=== PATIENT | female | born 1985 ===

== ENCOUNTER 2020-03-05 18:45 | Emergency (ER) | payer OTHER, SELFPAY ==
--- NOTE | 2020-03-05 19:00 | ED.GENADUL_ITS ---
Discharge Plan Disposition Patient Disposition: HOME Condition: Good Discharge Details Clinical Impression: Abdominal pain Primary Care Provider: Unknown,Unknown ED Provider: Abril Robin Home Meds and New Rx's Prescriptions: Continued multivitamin Tablet 1 tab PO DAILY RF: 0 Harvey 60 mg Capsule 60 mg PO TID RF: 0 Discharge Instructions Instructions: Abdominal Pain (ED) Additional Instructions: Your labs are reassuring today. Your imaging shows that you have had your oophorectomy on the right side. You have an enlarged appendix but this does not appear consistent with acute appendicitis. The surgeon would like to reevaluate you tomorrow and likely repeat blood work. Please call the office tomorrow to schedule appointment. Number listed below. If you develop fever/chills, increased pain, inability to hydrate, vomiting or other new/worsening symptoms care urgently once again. Please follow-up with primary care within the next 2 weeks. You were noted to have an ovarian cyst on the left side. Referral to women's wellness has been made. You may call tomorrow to schedule follow-up appointment, number listed below. Referrals: Maria Esther Muhammad MD [ [facility] STAFF PHYSICIAN] - Amaris Dozier DO [OSTEOPATHIC DOCTOR] - Medical Decision Making Patient is a pleasant 35-year-old female referred here from urgent care. Patient had a little right lower quadrant pain x 1 month that has progressively been increasing.. At the urgent care, she had a negative test, negative urinalysis. Sort Operations Supervisor was concerned the patient had guarding on the right lower quadrant. He reports she status post oophorectomy but unclear which side. Has not had any other abdominal surgeries. Patient reported to sound that felt like her ovarian cyst have historically. She tates that nothing worsens or improves her pain but that it is constant. Denies change in urinary habits, BM. Denies vaginal discharge, no new sexual partners. LMP 2 weeks ago. States that she had twins 10 months ago via . Lawrence moved here from [place] recently, has established with [facility] but does not have her preliminary appointment until the . She denies fevers/chills. No change in appetite. Began Harvey 2 days ago but no change in her pain since starting this. No trauma. On exam, she appears comfortable. She has RLQ pain with palpation but no peritoneal findings. She has is tender (point as well as just below this. Considered appendicitis although the length of her symptoms would make this fairly unusual. She does not appear acutely ill or toxic. Up to consider potential ovarian patient reports she has had these historically. This does not sound to be cyclical in nature associated with her menstrual cycle. Patient is status post oophorectomy but unclear which side. Plan for CT as well as baseline labs. Discussed plan with patient she declines any analgesia this time. FINDINGS: Liver: Unremarkable. Gallbladder and bile ducts: Unremarkable. Pancreas: Unremarkable. Spleen: Unremarkable. Adrenal glands: Unremarkable. Kidneys and ureters: Unremarkable. No hydronephrosis. Stomach and bowel: No bowel obstruction. Appendix: Appendix is mildly prominent measuring 7 mm with no adjacent fat stranding. Intraperitoneal space: Minimal free fluid. No free air. Vasculature: No aortic aneurysm. No aortic dissection. Lymph nodes: No pathologically enlarged lymph nodes. Urinary bladder: Unremarkable as visualized. Reproductive: There is a possible 5.4 cm cyst with septations in the left ovary. The right ovary is not seen. Bones/joints: No acute fracture. No destructive bone lesion. Soft tissues: Unremarkable. IMPRESSION: 1. Borderline abnormal appendix without significant inflammatory changes. This may be within normal limits, but close clinical follow-up is recommended. 2. Possible mildly complex left ovarian cyst. The right ovary is not seen. Recommend ultrasound for further evaluation. Labs reviewed. No leukocytosis. Hemoglobin slightly low at 10.9. No significant electrolyte abnormalities. I discussed these findings with chitra bateman. Also comfortable with Dr. Hrerera. At this point, the patient is tolerating p.o. well. Afebrile. No leukocytosis. Her exam does indicate discomfort over McBurney's point however, her labs, history and imaging are not consistent with acute appendicitis despite her enlarged appendix. Dr. Herrera will see her in the office tomorrow. Advised that she will repeat labs and reevaluate. Patient did report that she was status post oophorectomy but was not clear which side this was on. Based on imaging, the right ovary that has been removed. She does have the complex left ovarian cyst, plan to refer to women's wellness. Patient is new to the area but has established with primary care. Patient will contact primary care tomorrow to schedule follow-up in the next 2 weeks. She will follow-up with general surgery tomorrow. Also advised that she contact women's wellness. They had advised the patient had an ultrasound for further evaluation of the right ovary but again, patient is status post nephrectomy did not that this needs to be done in an urgent manner. Other questions and concerns were addressed in agreement with this plan HPI General Mode of arrival: ambulatory . Date/Time Provider Initiated Documentation: 03/05/20 19:00 . Limitations to Documentation: no limitations . Information obtained by: patient, RN/MD and RN notes reviewed . History of Present Illness 35 year old F presents to the emergency department with the chief complaint of RLQ pain, described as moderate, with intensity rated at 6. Quality is described as aching, and is localized to the abdomen. Patient reports no radiation. Patient started experiencing this month(s) (1) and it has been constant. No relieving factors improve symptom(s), No exacerbating factors reported . Patient notes no other symptoms.. Patient did receive the following treatments prior to arrival, none Related Data Home Medications Medication Instructions Recorded Confirmed Harvey 60 mg PO TID 03/05/20 03/05/20 multivitamin 1 tab PO DAILY 03/05/20 03/05/20 Allergies Allergy/AdvReac Type Severity Reaction Status Date / Time No Known Allergies Allergy Unverified 03/05/20 19:20 Review of Systems Constitutional Constitutional: Reports as per HPI, Denies chills, Denies fatigue, Denies fever(s) and Denies headache(s) ENT Ears, Nose, Mouth, and Throat: Denies headache(s) Cardiovascular Cardiovascular: Reports as per HPI, Denies chest pain and Denies dyspnea Respiratory Respiratory: Reports as per HPI, Denies cough and Denies dyspnea Gastrointestinal Gastrointestinal: Reports as per HPI Musculoskeletal Musculoskeletal: Reports as per HPI and Denies back pain Integumentary/Breasts Skin/Breast: Reports as per HPI and Denies rash Neurologic Neurologic: Reports as per HPI and Denies headache(s) Endocrine Endocrine: Denies fatigue [facility] Social History Smoking risk assessment performed?: No Current gender identity: female Exam Const General: cooperative, healthy appearing, comfortable, no acute distress and well developed Nutritional Appearance: well nourished and obese Orientation: alert and awake HENMT Head: normal to inspection Mouth: moist mucous membranes Resp Effort & Inspection: normal respiratory effort, able to speak in complete sentences and no respiratory distress Auscultation: clear to auscultation bilaterally, no rales, no rhonchi and no wheezes Cardio Rate: regular rate Rhythm: regular rhythm Heart Sounds: S1 normal and S2 normal GI Inspection: normal to inspection, no edema, non-distended, no visible herniation, no visible pulsation and No visible peristalsis Palpation: soft, no hepatosplenomegaly, no guarding, no hernias, no masses, no pulsatile masses, tender in the RLQ and at McBurney's point; Birch's sign negative, obturator sign negative, psoas sign negative and with no rebound tenderness and No ascites Percussion: normal to percussion Auscultation: normal bowel sounds Back/Spine/Pelvis Back: no CVA tenderness Skin General skin exam: no rashes or lesions noted Trauma: no lacerations or abrasions Neuro General: patient alert and patient awake Cognition: normal cognition Speech: speech normal Gait: normal gait Psych Appearance: grossly normal and well kempt Mental Status: mental status grossly normal Speech and Movement: speech and movement normal
--- NOTE | 2020-03-05 19:00 | DI.CT_ITS ---
EXAM: CT ABDOMEN PELVIS W CLINICAL HISTORY: RLQ pain. TECHNIQUE: Imaging Protocol: Axial computed tomography images with coronal and sagittal reformatted images were created and reviewed CONTRAST MATERIAL: Intravenous: Omnipaque 100cc Oral: None COMPARISON: No exams were available for comparison FINDINGS: VISUALIZED LUNG BASES: No nodules nor pleural effusions evident. ABDOMEN: There is no ascites. LIVER: There are no obvious focal hepatic lesions evident . GALLBLADDER/BILIARY: No obvious gallbladder pathology. CBD is not dilated. PANCREAS: No evidence of pancreatic mass nor dilatation of the pancreatic duct. SPLEEN: Spleen is not enlarged. No obvious intrasplenic lesions. Splenic and portal veins are paten t. ADRENALS: There are no significant adrenal masses. KIDNEYS:No cysts evident. No solid renal masses. No calculi nor hydronephrosis.. ABDOMINAL AORTA: Abdominal aorta is not enlarged and there is no aehykrxkmttjalu-hjvr-idhagi adenopat hy. ABDOMINAL WALL/GI: Diastasis of the rectus abdominus no to anterior abdominal wall hernia sac. No ramses wel obstruction. PELVIS: GI: The diameter of the appendix is slightly increased (8 millimeters). There is no obvious periappe ndiceal streaking. There is no calcified structure within the appendix lumen. No evidence of sigmoi d diverticulitis. LYMPH NODES: There is no intrapelvic nor inguinal adenopathy. REPRODUCTIVE: Uterus unremarkable. There is a complex septated cyst in the left ovary which measures approximately 5 x 3 centimetres. The opposite-right ovary is difficult to identify. No obvious marie e fluid. URINARY BLADDER: No calculi nor obvious masses evident OSSEOUS: No significant osseous lesions. IMPRESSION: 1. Appendix diameter is slightly increased but there is no periappendiceal streaking to suggest obvio us acute appendicitis. Nevertheless, recommend close follow-up. 2. Complex ovarian cyst measuring approximately 5 x 3 centimetres. Recommend further characterizatio n with ultrasound. The opposite-right ovary is difficult to visualize on this study. There is no fr ee fluid in the pelvis. 3. Diastasis of the anterior abdominal wall rectus muscle but no true anterior abdominal wall hernia. RADIATION DOSE DELIVERED: 1,379.79mGy.cm Total DLP DATA REPOSITORY: All CT scans at this facility are submitted to the National Radiology Data Registry (NRDR) Dose Index Registry (DIR) with the [employer] (A[employer]). RADIATION OPTIMIZATION: All CT scans at this facility use at least one of these dose optimization te chniques: automated exposure control; mA and/or kV adjustment per patient size (includes targeted exa ms where dose is matched to clinical indication); or iterative reconstruction.
[2020-03-05 19:16] VITALS: BP 141/60; PULSE 76; RESP 20; TEMP 36.9; O2SAT 100
[2020-03-05 20:04] LABS: Abs Immature Grans 0.02 10^3/uL (0.0-0.06); Absolute Basophil Count 0.02 10^3/uL (0.0-0.2); Absolute Eosinophil Count 0.22 10^3/uL (0.0-0.7); Absolute Lymphocyte Count 2.21 10^3/uL (1.2-3.4); Absolute Monocyte Count 0.37 10^3/uL (0.1-0.8); Absolute Neutrophil Count 3.95 10^3/uL (1.2-6.7); Basophils % 0.3; Eosinophils % 3.2; HCT 34.7 % (36.0-46.0); HGB 10.9 g/dL (11.2-15.7); Immature Grans % 0.3; Lymphocytes % 32.5; MCH 27.4 pg (27.0-33.0); MCHC 31.4 % (32.0-36.0); MCV 87.2 fL (80-95); MPV 9.4 fL (8.0-11.0); Monocytes % 5.4; Neutrophils % 58.3; Nucleated RBC 0 %; Platelet Count 379 10^3/uL (130-400); RBC 3.98 10^6/uL (3.93-5.22); RDW 13.5 % (11.7-14.6); RDW-SD 42.8 fL; WBC 6.79 10^3/uL (4.4-10.8)
[2020-03-05] MEDS: Omnipaque 350 MG/ML 100 ML BTL IJ (20:07)
[2020-03-05] MEDS: Normal Saline Flush 10 ML SYR IVP (20:08)
[2020-03-05 20:09] LABS: Bilirubin Negative (Negative); Blood Negative (Negative); Clarity Clear (Clear); Glucose Negative (Negative); Ketones Negative (Negative); Leukocyte Esterase Negative (Negative); Nitrite Negative (Negative); Specific Gravity 1.025 (1.005-1.025); Urobilinogen 0.2 EU/dL (Up TO 0.2)
[2020-03-05 20:25] LABS: ALT 17 U/L (14-59); AST 13 U/L (15-37); Alkaline Phosphatase 100 U/L (46-116); Anion Gap 7.5 mmol/L (3-11); BUN 12 mg/dL (7-18); Bilirubin, Total 0.2 mg/dL (0.2-1.0); CO2 27.5 mmol/L (21.0-32.0); CREATININE 0.82 mg/dL (0.55-1.02); Calcium 9.1 mg/dL (8.5-10.1); Chloride 103 mmol/L (98-107); Glucose 108 mg/dL (74-106); Magnesium 2.1 mg/dL (1.8-2.4); Potassium 3.7 mmol/L (3.5-5.1); Sodium 138 mmol/L (136-145); Total Protein 8.1 g/dL (6.4-8.2)
[2020-03-05] MEDS: Lactated Ringers 1,000 ML 1000 ML IV (20:29)
--- NOTE | 2020-03-05 20:49 | DI.VRAD_ITS ---
PROCEDURE INFORMATION: Exam: CT Abdomen And Pelvis With Contrast Exam date and time: 03/05/2020 8:00 PM Age: 35 years old Clinical indication: Abdominal pain; Localized; Right lower quadrant (rlq); Prior surgery; Surgery date: 6+ months; Surgery type: ; Patient HX: Rlq pain and back pain worsening TECHNIQUE: Imaging protocol: Computed tomography of the abdomen and pelvis with intravenous contrast. Radiation optimization: All CT scans at this facility use at least one of these dose optimization techniques: automated exposure control; mA and/or kV adjustment per patient size (includes targeted exams where dose is matched to clinical indication); or iterative reconstruction. Contrast material: OMNIPAQUE 350; Contrast volume: 100 ml; Contrast route: INTRAVENOUS (IV); COMPARISON: No relevant prior studies available. FINDINGS: Liver: Unremarkable. Gallbladder and bile ducts: Unremarkable. Pancreas: Unremarkable. Spleen: Unremarkable. Adrenal glands: Unremarkable. Kidneys and ureters: Unremarkable. No hydronephrosis. Stomach and bowel: No bowel obstruction. Appendix: Appendix is mildly prominent measuring 7 mm with no adjacent fat stranding. Intraperitoneal space: Minimal free fluid. No free air. Vasculature: No aortic aneurysm. No aortic dissection. Lymph nodes: No pathologically enlarged lymph nodes. Urinary bladder: Unremarkable as visualized. Reproductive: There is a possible 5.4 cm cyst with septations in the left ovary. The right ovary is not seen. Bones/joints: No acute fracture. No destructive bone lesion. Soft tissues: Unremarkable. IMPRESSION: 1. Borderline abnormal appendix without significant inflammatory changes. This may be within normal limits, but close clinical follow-up is recommended. 2. Possible mildly complex left ovarian cyst. The right ovary is not seen. Recommend ultrasound for further evaluation. Dictated and Authenticated by: Cruz Vanegas MD. Ordering:RAYMOND Samuels MD
[2020-03-05 21:10] VITALS: BP 131/73; PULSE 65; RESP 16; TEMP 36.9; O2SAT 99
--- NOTE | 2020-03-06 05:14 | NUR.NOTE ---
Nursing Note: Referral faxed 05:10 03/06/2020 to women wellness for follow up.
== END 2020-03-05 21:29 | disposition home or self-care (01) ==
PROVIDERS: Emergency Provider Physician Assistant
DX: R10.31 Right lower quadrant pain (principal)
CPT/HCPCS: 36415; 80053; 81025; 96360; 99284; 74177; 81003; 83735; 85025; J3490

== ENCOUNTER → 2020-03-06 09:41 | Outpatient (CLI) | payer OTHER, SELFPAY ==
[2020-03-06 13:54] LABS: Abs Immature Grans 0.01 10^3/uL (0.0-0.06); Absolute Basophil Count 0.01 10^3/uL (0.0-0.2); Absolute Eosinophil Count 0.27 10^3/uL (0.0-0.7); Absolute Lymphocyte Count 1.88 10^3/uL (1.2-3.4); Absolute Monocyte Count 0.27 10^3/uL (0.1-0.8); Absolute Neutrophil Count 2.45 10^3/uL (1.2-6.7); Basophils % 0.2; Eosinophils % 5.5; HCT 33.7 % (36.0-46.0); HGB 10.5 g/dL (11.2-15.7); Immature Grans % 0.2; Lymphocytes % 38.4; MCH 26.9 pg (27.0-33.0); MCHC 31.2 % (32.0-36.0); MCV 86.4 fL (80-95); MPV 9.2 fL (8.0-11.0); Monocytes % 5.5; Neutrophils % 50.2; Nucleated RBC 0 %; Platelet Count 315 10^3/uL (130-400); RDW 13.7 % (11.7-14.6); RDW-SD 43.6 fL; WBC 4.89 10^3/uL (4.4-10.8)
== END ==
PROVIDERS: Visit Provider Surgery
DX: R10.31 Right lower quadrant pain (principal); G89.29 Other chronic pain
CPT/HCPCS: 85025

== ENCOUNTER 2020-03-26 02:31 | Outpatient (CLI) | payer OTHER, SELFPAY ==
--- NOTE | 2020-03-26 07:30 | DI.US_ITS ---
EXAM: US PELVIS TRANSVAGINAL CLINICAL HISTORY: complex left 5.4cm ovarian cyst on CT,N83.92,RLQ PAIN,R10.31 TECHNIQUE: Transabdominal and transvaginal imaging was performed using standard protocol. COMPARISON: CT CT ABDOMEN PELVIS W from 03/05/[address] ABDOMEN PELVIS W from 03/05/2020 FINDINGS: KIDNEYS: Kidneys are symmetric in size. No evidence of renal calculi. No evidence of hydronephrosis. No renal mass or cyst identified. UTERUS: Anteverted. 12.0 x 4.3 x 6.2 cm. Endometrium: 10 millimeters. Myometrium: 2.5 centimeter posterior myometrial fibroid. Cervix: Fluid within the cervical canal. OVARIES: Right: Cyst or mass: None. Left: Cyst or mass: None. Normal appearing follicles. Of the previously noted 5 centimeter left ova ismael cyst has resolved. DOPPLER: Color: Symmetric and uniform flow to both ovaries. No hyperemia. Duplex: Normal ovarian arterial waveforms visualized. CUL-DE-SAC: Free fluid: None. IMPRESSION: 1. Small fibroid. Fluid in the cervical canal. 2. Unremarkable bilateral ovaries. Resolution of previously noted left ovarian cyst. DATA REPOSITORY:
== END 2020-03-26 02:51 ==
PROVIDERS: PCP Nurse Practitioner Community Health; Visit Provider Surgery
DX: R10.31 Right lower quadrant pain (principal); Z87.42 Personal history of other diseases of the female genital tract; D25.9 Leiomyoma of uterus, unspecified; N85.4 Malposition of uterus
CPT/HCPCS: 76830; 76856

== ENCOUNTER → 2020-03-26 03:42 | Outpatient (CLI) | payer OTHER, SELFPAY ==
[2020-03-26 14:33] LABS: Abs Immature Grans 0.01 10^3/uL (0.0-0.06); Absolute Basophil Count 0.02 10^3/uL (0.0-0.2); Absolute Eosinophil Count 0.18 10^3/uL (0.0-0.7); Absolute Lymphocyte Count 1.74 10^3/uL (1.2-3.4); Absolute Monocyte Count 0.34 10^3/uL (0.1-0.8); Absolute Neutrophil Count 3.11 10^3/uL (1.2-6.7); Basophils % 0.4; Eosinophils % 3.3; HCT 37.5 % (36.0-46.0); HGB 11.7 g/dL (11.2-15.7); Immature Grans % 0.2; Lymphocytes % 32.2; MCH 27.1 pg (27.0-33.0); MCHC 31.2 % (32.0-36.0); MPV 9.5 fL (8.0-11.0); Monocytes % 6.3; Neutrophils % 57.6; Nucleated RBC 0 %; Platelet Count 389 10^3/uL (130-400); RBC 4.31 10^6/uL (3.93-5.22); RDW 13.2 % (11.7-14.6); RDW-SD 42.3 fL
[2020-03-26 15:24] LABS: Iron 44 ug/dL (50-170); Total Iron Binding Capacity 307 ug/dL (250-450); Transferrin Sat 14 % (15-50)
[2020-03-26 15:46] LABS: Ferritin 32 ng/mL (8-252); TSH (W/Ref FT4) 1.21 uIU/mL (0.36-3.74); Vitamin B12 942 pg/mL (193-986)
[2020-03-26 15:53] LABS: Folate > 20.0 ng/mL (8.6-20.0)
== END ==
PROVIDERS: PCP Nurse Practitioner Community Health; Visit Provider Surgery
DX: R10.31 Right lower quadrant pain (principal); D64.9 Anemia, unspecified; N83.292 Other ovarian cyst, left side; G89.29 Other chronic pain
CPT/HCPCS: 36415; 82607; 82728; 82746; 83540; 83550; 84443; 85025

== ENCOUNTER 2020-04-25 02:21 | Outpatient (CLI) | payer OTHER, SELFPAY ==
--- NOTE | 2020-04-25 | DI.US_ITS ---
EXAM: US PELVIS TRANSVAGINAL CLINICAL HISTORY: F/U COMPLEX LT OVARIAN CYST ON CT,ANEMIA,D64.9,N83.292 TECHNIQUE: Ultrasound of the pelvis was performed both transabdominal and transvaginal. COMPARISON: US US ABDOMEN from 04/23/2020 FINDINGS: UTERUS: Measures 8.1 cm length x 4.0 cm AP x 4.6 cm wide. There are no uterine fibroids. Endometrial thickness measures 3-4 mm. There is no fluid in the endometrial canal. CERVIX: Nabothian cysts noted in the upper cervix. RIGHT OVARY: Measures 3.3 x 1.8 x 1.6 cm No significant cysts nor masses evident in the right ovary. LEFT OVARY: Measures 2.9 x 1.9 x 2.0 cm Contains follicular cysts, largest measuring 1.2 x 1.0 cm. CUL-DE-SAC: No free fluid evident. IMPRESSION: 1. Normal appearing uterus and age-appropriate endometrium. 2. No abnormal ovarian findings. 3. No free fluid evident in the adnexal regions and cul-de-sac. DATA REPOSITORY:
== END 2020-04-25 02:22 ==
LOC: DI 02:21
PROVIDERS: PCP Nurse Practitioner Community Health; Visit Provider Obstetrics & Gynecology
DX: N83.292 Other ovarian cyst, left side (principal); D64.9 Anemia, unspecified
CPT/HCPCS: 76830; 76856

== ENCOUNTER 2020-05-13 15:23 | Outpatient (REF) | payer OTHER, SELFPAY ==
[2020-05-13 21:25] LABS: ALT 16 U/L (14-59); AST 18 U/L (15-37); Albumin 4.5 g/dL (3.4-5.0); Alkaline Phosphatase 101 U/L (46-116); Bilirubin, Direct 0.1 mg/dL (0.0-0.2); Bilirubin, Total 0.3 mg/dL (0.2-1.0); Total Protein 8.6 g/dL (6.4-8.2)
[2020-05-13 21:26] LABS: Hemoglobin A1C 5.8 % (<5.7)
== END 2020-05-13 15:24 | disposition home or self-care (01) ==
LOC: NCHCN 15:23
PROVIDERS: PCP Nurse Practitioner Community Health; Visit Provider Nurse Practitioner Community Health
DX: Z00.00 Encounter for general adult medical examination without abnormal findings (principal); E66.9 Obesity, unspecified; Z13.1 Encounter for screening for diabetes mellitus
CPT/HCPCS: 80076; 83036

== ENCOUNTER 2020-10-07 17:31 | Outpatient (REF) | payer OTHER, SELFPAY ==
[2020-10-07 21:42] LABS: Hemoglobin A1C 5.7 % (<5.7)
[2020-10-07 21:53] LABS: Calculated LDL 97 mg/dL (<100); Cholesterol 173 mg/dL (<200); HDL Cholesterol 54 mg/dL (40-60); TSH 1.24 uIU/mL (0.36-3.74); Triglyceride 112 mg/dL (<150)
[2020-10-07 22:10] LABS: FREE T4 0.83 ng/dL (0.76-1.46)
[2020-10-08 16:38] LABS: T3,Free 2.9 pg/mL (2.8-5.3)
[2020-10-09 13:54] LABS: ANA Interpretation Negative (Negative)
== END 2020-10-07 17:32 | disposition home or self-care (01) ==
LOC: NCHCN 17:31
PROVIDERS: PCP Nurse Practitioner Community Health; Visit Provider Nurse Practitioner Community Health
DX: R63.5 Abnormal weight gain (principal); Z68.41 Body mass index [BMI] 40.0-44.9, adult
CPT/HCPCS: 80061; 83036; 84439; 84443; 84481; 86038

== ENCOUNTER 2021-01-29 16:39 | Emergency (ER) | payer OTHER, SELFPAY ==
[2021-01-29 16:41] VITALS: BP 117/76; PULSE 101; RESP 26; TEMP 37; O2SAT 98
--- NOTE | 2021-01-29 16:45 | RT.EKG_ITS ---
APPROVED REPORT Exam: Resting ECG Reason for Exam: sob,chest pain Patient Location: E HR:88 bpm ECG Measurements Heart Rate 88 AXIS WI 155 P 82 QRSd 83 QRS 35 QT 348 T 17 QTc 422 Conclusion Sinus rhythm...normal P axis, V-rate 60- 99
--- NOTE | 2021-01-29 17:15 | DI.RAD_ITS ---
Exam(s) XR PORTABLE CHEST AP EXAM: XR PORTABLE CHEST AP CLINICAL HISTORY: cough, sputum. TECHNIQUE: 2D digital imaging was performed. COMPARISON: No exams were available for comparison FINDINGS: Heart size is upper normal. The mediastinum is not widened. Lungs are clear. No infiltrates nor obvious pleural effusions. IMPRESSION: No acute pulmonary findings on this single AP portable view of the chest. DATA REPOSITORY: RADIATION DOSE DELIVERED: All CT scans at this facility use at least one of these dose optimization techniques: automated exposure control; mA and/or kV adjustment per patient size (includes targeted e xams where dose is matched to clinical indication); or iterative reconstruction.
--- NOTE | 2021-01-29 17:19 | ED.GENADUL_ITS ---
Discharge Plan Disposition Patient Disposition: HOME Condition: Improving Discharge Details Clinical Impression: Acute bronchitis Primary Care Provider: Denice Mixon ED Provider: Guille Jimenez Home Meds and New Rx's Prescriptions: New Robitussin Cough-Chest Roberto DM 5-100 mg/5 mL liquid 10 ml PO Q6H PRN7 Days Qty: 237 RF: 0 azithromycin 250 mg tablet 250 mg PO DAILY 4 Days Qty: 4 RF: 0 Discharge Instructions Instructions: Acute Bronchitis (ED) Additional Instructions: As we discussed, your COVID-19 test is pending and the emergency department staff will call you with the result. You may benefit from vitamin C 1 g once or twice per day, zinc 220 mg once daily. Take antibiotics as prescribed. May use Robitussin as prescribed, as needed for cough. Our care managers will assist in setting up a new primary care appointment for you in for recheck. Tylenol and/or ibuprofen as needed for aches pains or fever. Small, frequent sips of fluid so that you maintain hydration. Stand Alone Forms: PENDING COVID-19 TESTING Medical Decision Making 36-year-old female who is not immunized against COVID-19 reports onset of fever chills and body aches 5 days ago, seem to improve for a day or so and now with 2 days of cough, congestion, burning of my lungs. States her teenage children have had a cough. No other known sick contacts. No recent travel. Denies change to taste or smell. Differential diagnosis is broad and would consider viral syndrome, pneumonitis, pneumonia. IV access established, screening laboratories obtained including influenza and Covid screening. D-dimer is negative at 416. Chemistries within normal limits, CBC with white count 2.1, hematocrit 36, platelets 282. There is an absolute lymphocyte predominance and the patient may have some viral suppression of white blood cell count. Influenza negative. COVID-19 test is a send out and is pending. Chest x-ray with mild peribronchial thickening and perihilar stranding suggesting bronchitis. Discussed with patient ongoing conservative management at home while awaiting COVID-19 result. Given the finding of bronchitis on x- ray I do think it is reasonable to start antibiotics and will begin azithromycin which patient is in agreement with. Will offer antitussive for home. Patient states she wishes to establish new primary care and will ask care management to arrange this as well. HPI General Mode of arrival: ambulatory . Date/Time Provider Initiated Documentation: 01/29/21 16:59 . Limitations to Documentation: no limitations . Information obtained by: patient . History of Present Illness 36 year old F presents to the emergency department with the chief complaint of Cough, fever, sputum production, described as moderate, Quality is described as dull, and is localized to the chest. Patient reports no radiation. Patient started experiencing this day(s) and it has been constant. No relieving factors improve symptom(s), No exacerbating factors reported . Patient notes cough, fever/chills and malaise; denies syncope. Related Data Home Medications Medication Instructions Recorded Confirmed azithromycin 250 mg PO DAILY 4 Days #4 tab 01/29/21 dextromethorphan-guaifenesin 10 ml PO Q6H PRN 7 Days #237 ml 01/29/21 [Robitussin Cough-Chest Roberto DM] Previous Rx's Medication Instructions Recorded azithromycin 250 mg PO DAILY 4 Days #4 tab 01/29/21 dextromethorphan-guaifenesin 10 ml PO Q6H PRN 7 Days #237 ml 01/29/21 [Robitussin Cough-Chest Roberto DM] Allergies Allergy/AdvReac Type Severity Reaction Status Date / Time No Known Allergies Allergy Unverified 01/29/21 16:54 General Stated Complaint: SOB DAYAMI: 2 Review of Systems Narrative: Stuffy nose, minimal myalgias. See HPI 8 systems reviewed and otherwise neg [facility] Active Problem List RUQ abdominal pain (Acute) Hypertension (Chronic) Contraception management (Acute) Anemia (Chronic) Complex cyst of left ovary (Acute) Anemia (Chronic) Chronic RLQ pain (Acute) Social History Smoking/Tobacco Use Status: Never Smoking risk assessment performed?: Yes Alcohol Intake: never Drug use: Never Current gender identity: female Do you feel safe at home: Yes Do you feel safe in your relationship?: Yes Exam Narrative Exam Narrative: GEN: awake, alert, oriented 3. Pleasant, well groomed, interactive. HEAD: Normocephalic, atraumatic ENT: Mucous membranes moist, tympanic membranes clear bilaterally external ear exam unremarkable EYES: PERRL, EOMI NECK: Full ROM, no FRANCISCO JAVIER, no menigismus CHEST/RESP: Nontender, clear to auscultation bilateral, but diminished throughout CARDIOVASCULAR: Regular, borderline tachycardia, no murmur, rub doris. 2+ Rad pulse bilateral ABDOMEN: Soft, nontender, no mass. +Bowel sounds EXT: Full ROM, no edema, no rash Neuro: Grossly normal neurologic exam, conversant, interactive. Psych: Speech fluent, thoughts congruent, affect normal Course Vital Signs Vital signs: Vital Signs Temperature 37 C 01/29/21 16:41 Pulse 101 H 01/29/21 16:41 Respiratory Rate 26 H 01/29/21 16:41 Blood Pressure 117/76 01/29/21 16:41 Pulse Oximetry 98 01/29/21 16:41 Temperature 37 C 01/29/21 16:41 Temperature Source Skin 01/29/21 16:41 Pulse 101 H 01/29/21 16:41 Respiratory Rate 26 H 01/29/21 16:41 Respiratory Effort Incrsd Work of Breathing 01/29/21 16:55 Blood Pressure 117/76 01/29/21 16:41 Blood Pressure Position Sitting 01/29/21 16:41 Pulse Oximetry 98 01/29/21 16:41 Oxygen Delivery Method Room Air 01/29/21 16:41 Oxygen Flow Rate 0 01/29/21 16:41 Pain Level 6 01/29/21 16:41 Comment 01/29/21 16:41
[2021-01-29 17:47] LABS: Absolute Eosinophil Count 0.01 10^3/uL (0.0-0.7); Absolute Lymphocyte Count 1.07 10^3/uL (1.2-3.4); Absolute Monocyte Count 0.37 10^3/uL (0.1-0.8); Absolute Neutrophil Count 0.71 10^3/uL (1.2-6.7); Eosinophils % 0.5; HCT 36.1 % (36.0-46.0); HGB 10.9 g/dL (11.2-15.7); Lymphocytes % 49.5; MCH 26.8 pg (27.0-33.0); MCHC 30.2 % (32.0-36.0); MCV 88.9 fL (80-95); MPV 9.4 fL (8.0-11.0); Monocytes % 17.1; Neutrophils % 32.9; Nucleated RBC 0 %; Platelet Count 282 10^3/uL (130-400); RBC 4.06 10^6/uL (3.93-5.22); RDW 13.2 % (11.7-14.6); RDW-SD 43.3 fL; WBC 2.16 10^3/uL (4.4-10.8)
[2021-01-29] MEDS: ACETAMINOPHEN 1,000 MG/100 ML BTL 400 MG IVPB (17:47)
[2021-01-29] MEDS: Normal Saline 1,000 ML 1000 ML IV (17:47)
[2021-01-29 17:52] VITALS: RESP 15
[2021-01-29 18:00] LABS: ALT 25 U/L (14-59); AST 37 U/L (15-37); Albumin 3.8 g/dL (3.4-5.0); Alkaline Phosphatase 67 U/L (46-116); Anion Gap 6.9 mmol/L (3-11); BUN 8 mg/dL (7-18); Bilirubin, Total 0.3 mg/dL (0.2-1.0); CO2 29.1 mmol/L (21.0-32.0); CREATININE 0.7 mg/dL (0.55-1.02); Calcium 8.6 mg/dL (8.5-10.1); Chloride 103 mmol/L (98-107); Glucose 91 mg/dL (74-106); Magnesium 2.3 mg/dL (1.8-2.4); Potassium 3.9 mmol/L (3.5-5.1); Sodium 139 mmol/L (136-145); Total Protein 7.7 g/dL (6.4-8.2)
[2021-01-29 18:14] LABS: D-Dimer 416 ng/mlFEU (<500)
--- NOTE | 2021-01-29 18:43 | DI.VRAD_ITS ---
PROCEDURE INFORMATION: Exam: XR Chest Exam date and time: 01/29/2021 6:25 PM Age: 36 years old Clinical indication: Cough TECHNIQUE: Imaging protocol: XR of the chest. Views: 1 view. Total images: 1 COMPARISON: CT ABDOMEN PELVIS W 03/05/2020 7:56 PM FINDINGS: Lungs: Question mild peribronchial thickening and perihilar stranding suggesting possible bronchitis. Low lung volumes. Pulmonary vasculature grossly normal. No gross pulmonary infiltrates. Pleural spaces: No pleural effusion. No pneumothorax. Heart/Mediastinum: Heart size normal. No tracheal/mediastinal shift. Bones/joints: No acute osseous abnormalities are identified. IMPRESSION: Question mild peribronchial thickening and perihilar stranding suggesting possible bronchitis. No gross pulmonary infiltrates. Dictated and Authenticated by: Teddy Barron MD. Ordering:JAY Han MD
[2021-01-29] MEDS: guaiFENesin/D-METHORPHAN HB 5 ML CUP PO (19:20)
[2021-01-29] MEDS: Azithromycin 250 MG TAB 500 MG PO (19:21)
[2021-01-29 19:29] VITALS: PULSE 79; RESP 18; O2SAT 96
--- NOTE | 2021-01-29 21:46 | W.ED.FU ---
Follow Up Plan: + Covid test, patient phone call attempted and no voicemail available, no answer.
[2021-01-29 21:52] LABS: Source Nasal/Nares
[2021-01-29 22:00] LABS: COVID-19 PCR Positive (Negative)
--- NOTE | 2021-01-30 00:37 | NUR.NOTE ---
Nursing Note: needs to be set up with a new pcp i put the referral page in care management box
--- NOTE | 2021-01-30 09:44 | W.ED.FU ---
Called patient on number listed and she was informed of her Covid positive result. Symptom onset was 01/25, so she likely has until 02/04 to receive a monoclonal antibody infusion and she stated she is interested in receiving this treatment. Patient placed on care management list to help arrange for this outpatient treatment. Patient states she is feeling okay. She was informed that she could return to the ED with any concerns.
--- NOTE | 2021-01-30 09:52 | NUR.NOTE ---
Nursing Note: Referral given to Care Management for patient to get monoclonal antibodies, within 4 days. Symptom onset was Sat Jan 25. Violette Reid
--- NOTE | 2021-01-30 12:46 | PDOC.ERCMPRO ---
- If Service Date Differs Date of service: 01/30/21 Time of Service: 12:46 Care Management Progress Note Lucille is seen in the ED for cough and congestion and is tested for Covid-19. The test returns positive and CM is asked to assist Lucille in getting an appointment for a MAB infusion. CM contacts the [facility], Lucille's PCP's office, to ask that they order the infusion if Lucille meets the requirements.
== END 2021-01-29 19:39 | disposition home or self-care (01) ==
PROVIDERS: Emergency Provider Emergency Medicine; PCP Nurse Practitioner Family
DX: U07.1 COVID-19 (principal); R07.89 Other chest pain
CPT/HCPCS: 36415; 80053; 81025; 87449; 87635; 93005; 99284; U0003; 71045; 83735; 85025; 85379; 93010; J0131

== ENCOUNTER 2021-01-31 06:32 | Emergency (ER) | payer OTHER, SELFPAY ==
[2021-01-31] VITALS (46 sets, daily range): BP systolic 94–122; BP diastolic 50–68; PULSE 79–97; RESP 16–25; TEMP 36.3–36.7; O2SAT 94–98
--- NOTE | 2021-01-31 06:35 | ED.GENADUL_ITS ---
Discharge Plan Disposition Patient Disposition: HOME Condition: Stable Discharge Details Clinical Impression: COVID, General weakness Primary Care Provider: Charline Westbrook ED Provider: Larry Bonner Home Meds and New Rx's Prescriptions: Continued Robitussin Cough-Chest Roberto DM 5-100 mg/5 mL liquid 10 ml PO Q6H PRN7 Days Qty: 237 RF: 0 azithromycin 250 mg tablet 250 mg PO DAILY 4 Days Qty: 4 RF: 0 Discharge Instructions Instructions: COVID-19 (Coronavirus Disease 2019) (ED) Additional Instructions: you were given an antibody infusion to lower your chance of becoming severely ill from covid if you feel more ill, have oxygen saturation less than 92% on the home monitor or worsening shortness of breath return to the emergency department Medical Decision Making <Dane Good MD - Last Filed: 01/31/21 07:21> Patient's vital signs and pulse oximetry are normal. She complains of worsening chest discomfort, shortness of breath and possible syncope. She is morbidly obese but denies any other significant medical history. Will obtain IV and start fluids. Recheck laboratory studies. CTA of chest given complaint of possible syncope with increased shortness of breath but she does have normal saturation and vitals. If work-up negative consider monoclonal antibody infusion while here in the ED. Case will be turned over to oncoming physician, Dr. Bonner. Medical Records Medical records reviewed: Yes I reviewed the patient's medical records. Lab Data Lab results reviewed: Yes I reviewed the patient's lab results. <Larry Bonner MD - Last Filed: 01/31/21 09:20> Patient signed out to me pending labs and CTA. Is known covid positive and symptoms started within the last week per patient. Labs reassuring, cta shows no pe, mild cardiomegaly and multifocal infiltrates consistent with pneumonia. Doubt bacterial pneumonia given no leukocytosis or fever and is known covid positive, already on azithromycin as well. She is hemodynamically stable not requiring any oxygen, is 98% on my exam on room air with no visible signs of dyspnea. Discussed with pt and she is willing to receive the monoclonal antibody infusion and consents to have this done after discussing risks and benefits. She will be d/c'd after if there are no changes. Return precautions given Imaging Data Radiologic Study: Attestation: I personally reviewed and interpreted this imaging study as follows: Imaging: CT Scan Radiologist's impression: [No evidence of pulmonary embolism, thoracic aortic dissection or aneurysm.] [Multifocal infiltrates consistent with pneumonia. Mild cardiomegaly. Results of this exam have been verbally communicated with provider.] ECG Data Attestation: I personally reviewed and interpreted this ECG (s) as follows: Prior ECG tracings: not available for review Interpretation: sinus rhythm, rate of 88, no acute st t wave ischemic findings HPI <Dane Good MD - Last Filed: 01/31/21 07:21> General Mode of arrival: EMS . Date/Time Provider Initiated Documentation: 01/31/21 06:35 . Limitations to Documentation: no limitations . Information obtained by: patient and RN notes reviewed . HPI Narrative: Patient presents to ED by ambulance with complaint of passing out and weakness. Patient seen here on the first with upper respiratory symptoms. Subsequently positive for Covid. She is not vaccinated. Continues to complain of chest discomfort/pressure and increased shortness of breath. She is unclear whether she truly syncopized or was just extremely weak. She reports diarrhea but no vomiting. She is drinking fluids and making urine. She denies any abdominal pain. She reports feeling worse than when she was here previously. She also reports that her primary care was setting her up for the monoclonal antibody treatment. Related Data Home Medications Medication Instructions Recorded Confirmed Robitussin Cough-Chest Roberto DM 10 ml PO Q6H PRN 7 Days #237 ml 01/29/21 01/31/21 azithromycin 250 mg PO DAILY 4 Days #4 tab 01/29/21 01/31/21 Previous Rx's Medication Instructions Recorded Robitussin Cough-Chest Roberto DM 10 ml PO Q6H PRN 7 Days #237 ml 01/29/21 azithromycin 250 mg PO DAILY 4 Days #4 tab 01/29/21 Allergies Allergy/AdvReac Type Severity Reaction Status Date / Time No Known Allergies Allergy Unverified 01/31/21 06:40 General DAYAMI: 2 Review of Systems <Dane Good MD - Last Filed: 01/31/21 07:21> Narrative: As documented in HPI otherwise negative as below. Const: no fever, chills Resp: no pleuritic pain CV: no diaphoresis, edema GI: no abdominal pain, nausea, vomiting Neuro: no headache, numbness, focal weakness, confusion PFSH <Dane Good MD - Last Filed: 01/31/21 07:21> Active Problem List Acute bronchitis (Acute) RUQ abdominal pain (Acute) Hypertension (Chronic) Contraception management (Acute) Anemia (Chronic) Complex cyst of left ovary (Acute) Anemia (Chronic) Chronic RLQ pain (Acute) Medical History Obesities, morbid Surgical History No significant past surgical history Social History Smoking/Tobacco Use Status: Never Smoking risk assessment performed?: Yes Alcohol Intake: never Drug use: Never Current gender identity: female Do you feel safe at home: Yes Do you feel safe in your relationship?: Yes Exam <Dane Good MD - Last Filed: 01/31/21 07:21> Narrative Exam Narrative: Const: Morbidly obese female in NAD. HEENT: NC/AT. Normal facial exam. Eyes: Normal conjunctiva and sclera. Neck: Supple. Trachea midline. Lungs: Normal respiratory effort. Lungs are clear. Cor: RRR without murmur/gallop. Good radial pulses. GI: Soft. NT/ND. Neuro: A+O x 3. Normal speech, mentation, gait. Cranial nerves II - XII grossly intact. No gross motor or sensory deficit. General weakness but non- focal. Ext: No C/C/E. Skin: Warm and dry without rash. Sign Out <Dane Good MD - Last Filed: 01/31/21 07:21> Sign Out Data: Sign Out Comment: pending repeat labs and CTA chest; consider MAB Last updated by Dane Good MD at 01/31/21 07:29
--- NOTE | 2021-01-31 06:45 | RT.EKG_ITS ---
APPROVED REPORT Exam: Resting ECG Reason for Exam: Patient Location: E HR:88 bpm ECG Measurements Heart Rate 88 AXIS VA 155 P 82 QRSd 86 QRS 45 QT 346 T 28 QTc 420 Conclusion Sinus rhythm...normal P axis, V-rate 60- 99
[2021-01-31 07:13] LABS: Abs Immature Grans 0.02 10^3/uL (0.0-0.06); Absolute Basophil Count 0.01 10^3/uL (0.0-0.2); Absolute Eosinophil Count 0.01 10^3/uL (0.0-0.7); Absolute Lymphocyte Count 0.93 10^3/uL (1.2-3.4); Absolute Monocyte Count 0.36 10^3/uL (0.1-0.8); Basophils % 0.2; Eosinophils % 0.2; HCT 37.8 % (36.0-46.0); HGB 11.6 g/dL (11.2-15.7); Immature Grans % 0.4; Lymphocytes % 17.4; MCHC 30.7 % (32.0-36.0); MCV 88.1 fL (80-95); MPV 9.5 fL (8.0-11.0); Monocytes % 6.8; Nucleated RBC 0 %; Platelet Count 268 10^3/uL (130-400); RBC 4.29 10^6/uL (3.93-5.22); RDW 13.2 % (11.7-14.6); RDW-SD 42.7 fL; WBC 5.33 10^3/uL (4.4-10.8)
[2021-01-31] MEDS: Lactated Ringers 1,000 ML 1000 ML IV (07:20)
[2021-01-31 07:36] LABS: ALT 21 U/L (14-59); AST 28 U/L (15-37); Albumin 3.9 g/dL (3.4-5.0); Alkaline Phosphatase 62 U/L (46-116); Anion Gap 8.5 mmol/L (3-11); BUN 7 mg/dL (7-18); Bilirubin, Total 0.3 mg/dL (0.2-1.0); CO2 26.5 mmol/L (21.0-32.0); CREATININE 0.7 mg/dL (0.55-1.02); Calcium 8.7 mg/dL (8.5-10.1); Chloride 99 mmol/L (98-107); Glucose 132 mg/dL (74-106); Potassium 4.2 mmol/L (3.5-5.1); Sodium 134 mmol/L (136-145); Total Protein 8.1 g/dL (6.4-8.2)
[2021-01-31 07:37] LABS: Troponin I < 0.05 ng/mL (<0.06)
[2021-01-31 07:40] LABS: HCG Qual (Serum) Negative
[2021-01-31] MEDS: Omnipaque 350 MG/ML 100 ML BTL IJ (07:57)
--- NOTE | 2021-01-31 08:01 | DI.CT_ITS ---
Exam(s) CT CHEST PE CTA EXAM: CT CHEST PE CTA CLINICAL HISTORY: COVID+; reports syncope, increase SOB. TECHNIQUE: Imaging Protocol: Axial CT angiography was performed with multi-slice acquisition and mu lti-planar and/or 3D reconstructions. CONTRAST MATERIAL: Intravenous: Omnipaque 350 Contrast volume:100 mL COMPARISON: CT CT ABDOMEN PELVIS W from 03/05/2020 CR,XR XR PORTABLE CHEST AP from 01/29/2021 FINDINGS: The examination is limited due to patient motion artifact. Tracheobronchial tree: Patent where visualized. Pulmonary parenchyma: Multifocal airspace opacities are present consistent with pneumonia. No indu ectural distortion. Pulmonary Arteries: No evidence of filling defect to suggest pulmonary emboli. Mediastinum and [place]: No dominant adenopathy or fluid collection. Small hiatal hernia. A soft disc i s otherwise unremarkable. Visualized thyroid gland: Unremarkable. Pleura: No effusion or pneumothorax. Heart: Mild cardiomegaly. No coronary artery calcifications are seen. No pericardial effusion. Aorta: Thoracic aorta non-dilated. No evidence of dissection. Upper abdomen: Unremarkable. Soft tissues: Unremarkable. Bones: Within normal limits for the patient's age. IMPRESSION: 1. No evidence of pulmonary embolism, thoracic aortic dissection or aneurysm. 2. Multifocal infiltrates consistent with pneumonia. 3. Mild cardiomegaly. 4. Results of this exam have been verbally communicated with provider. RADIATION DOSE DELIVERED: 604.06mGy.cm Total DLP DATA REPOSITORY: All CT scans at this facility are submitted to the National Radiology Data Registry (NRDR) Dose Index Registry (DIR) with the [employer] ([employer]). RADIATION OPTIMIZATION: All CT scans at this facility use at least one of these dose optimization te chniques: automated exposure control; mA and/or kV adjustment per patient size (includes targeted exa ms where dose is matched to clinical indication); or iterative reconstruction.
== END 2021-01-31 11:25 | disposition home or self-care (01) ==
PROVIDERS: Emergency Medicine; Emergency Provider Emergency Medicine; PCP Nurse Practitioner Family
DX: U07.1 COVID-19 (principal); R53.1 Weakness; R06.02 Shortness of breath; R07.89 Other chest pain; R19.7 Diarrhea, unspecified
CPT/HCPCS: 36415; 71275; 80053; 93005; 96360; 96365; 99285; 84484; 84703; 85025; 93010; 99284; J3490